=== PATIENT | female | born 1950 | race Caucasian/White ===

== ENCOUNTER → 2020-01-22 15:47 | Outpatient (BNVA) | payer MEDICARE, SELFPAY | PROVIDERS: Family Provider Nurse Practitioner Family; Visit Provider Nurse Practitioner Family | DX: J02.9 Acute pharyngitis, unspecified (principal) | CPT/HCPCS: 87071; 87880 ==

== ENCOUNTER 2024-09-03 14:59 | Emergency (ER) | payer MEDICARE, SELFPAY ==
--- NOTE | 2024-09-03 15:00 | CTR_ITS ---
PROCEDURE INFORMATION: Exam: CT Cervical Spine Without Contrast Exam date and time: 09/03/2024 4:24 PM Age: 73 years old Clinical indication: Injury or trauma; Fall; Bleeding/hemorrhage and blunt trauma TECHNIQUE: Imaging protocol: Computed tomography of the cervical spine without contrast. Radiation optimization: All CT scans at this facility use at least one of these dose optimization techniques: automated exposure control; mA and/or kV adjustment per patient size (includes targeted exams where dose is matched to clinical indication); or iterative reconstruction. COMPARISON: CT head wo con* [id number] 09/03/2024 4:24 PM RADIATION DOSE METRICS: Total DLP (mGy-cm): 191.9 FINDINGS: Bones: Alignment is normal. There is diffuse facet arthropathy. Degenerative disc disease is noted C4-C5, C5-C6, C6-C7. No fracture. Lungs: Lung apices are normal. Soft tissues: Unremarkable. CT/CT cervical spin wo con* [id number] IMPRESSION: No acute findings.
--- NOTE | 2024-09-03 15:00 | CTR_ITS ---
PROCEDURE INFORMATION: Exam: CT Head Without Contrast Exam date and time: 09/03/2024 4:24 PM Age: 73 years old Clinical indication: Injury or trauma; Fall; Bleeding/hemorrhage and blunt trauma (contusions or hematomas); Without loss of consciousness TECHNIQUE: Imaging protocol: Computed tomography of the head without contrast. Radiation optimization: All CT scans at this facility use at least one of these dose optimization techniques: automated exposure control; mA and/or kV adjustment per patient size (includes targeted exams where dose is matched to clinical indication); or iterative reconstruction. COMPARISON: CT cervical spin wo con* [id number] 09/03/2024 4:24 PM RADIATION DOSE METRICS: Total DLP (mGy-cm): 1051.2 FINDINGS: Brain: No midline shift. Ventricles, cisterns, and sulci are normal. No mass, acute infarct, hemorrhage, or extraaxial fluid collection. Cerebral ventricles: No ventriculomegaly. Paranasal sinuses: Visualized sinuses are unremarkable. No fluid levels. Mastoid air cells: Visualized mastoid air cells are well aerated. Bones: Unremarkable. No acute fracture. Soft tissues: Left frontal and periorbital scalp hematoma. CT/CT head wo con* [id number] IMPRESSION: No acute intracranial abnormality.
[2024-09-03 15:03] VITALS: BP 154/78; PULSE 109; RESP 16; TEMP 36.9; O2SAT 96
[2024-09-03 15:22] LABS: Basophils # 0.1 10^3/uL (0.0-0.1); Basophils % 0.8 %; Eosinophils # 0.3 10^3/uL (0.0-0.8); Eosinophils % 3.9 %; Hematocrit 42.3 % (36-47); Lymphocytes % 30.6 %; Mean Corpuscular HGB Conc 32.6 g/dL (30-55); Mean Corpuscular Hemoglobin 29.6 pg (27-33); Mean Corpuscular Volume 90.8 fl (85-98); Mean Platelet Volume 9.8 fL (7.4-10.4); Monocytes # 0.4 10^3/uL (0.2-0.9); Monocytes % 5.7 %; Neutrophils % 58.7 %; Nucleated Red Blood Cells % 0 %; Platelet Count 286 10^3/cmm (157-399); Red Blood Count 4.66 10^6/uL (3.85-5.65); Red Cell Distribution Width 12.8 % (12.1-15.1); White Blood Count 6.64 10^3/uL (3.29-11.43)
--- NOTE | 2024-09-03 15:22 | ED_ITS ---
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 She fell and hit her head she has a laceration above her left eye. No loss of consciousness she denies any other injury when she fell. States it occurred when she was trying to lift a heavy trash bag out of a barrel. She normally uses a cane. No nausea or vomiting. Associated symptoms-after fall: Reports headache(s); Denies abdominal pain, chest pain or neck pain Related Data Home Medications ?Medication ?Instructions ?Recorded ?Confirmed diazepam 2 mg tablet (Valium) 2 mg PO BID PRN Anxiety 01/22/20 09/03/24 triamterene 37.5 1 tab PO DAILY 09/03/2408/19 mg-hydrochlorothiazide 25 mg tablet Allergies Allergy/AdvReac Type Severity Reaction Status Date / Time No Known Allergies Allergy Unverified 01/22/20 15:40 Review of Systems 2 Const: Denies: fever(s) or chills Card: Denies: chest pain Resp: Denies: dyspnea GI: Denies: abdominal pain : Denies: dysuria, urinary frequency or urinary urgency Musc: Denies: neck pain or back pain Skin/Breast: Denies: rash Neuro: Reports: headache(s) PFSH ED 2 PFSH: Social History Smoking and tobacco/nicotine status: never used tobacco/nicotine Alcohol intake: never Substance/Drug Use: never Physical Exam 2 Const: COMMON NORMALS: no acute distress GENERAL APPEARANCE: cooperative ORIENTATION/CONSCIOUSNESS: Yes awake, Yes oriented to person, Yes oriented to place and Yes oriented to time HENMT: COMMON NORMALS: normocephalic, external ears normal, EAC's normal, TM's normal bilaterally and Normal nasal mucous membranes and turbinates present H EAD & SCALP: normocephalic NOSE: Normal nasal mucous membranes and turbinates present EXTERNAL EAR: Yes external ears normal EXTERNAL AUDITORY CANAL: E AC's normal TYMPANIC MEMBRANE: TM's normal bilaterally Eye: COMMON NORMALS: Equal, round and reactive pupils present, EOMs intact bilaterally, conjunctivae normal and no scleral icterus CONJUNCTIVA: Yes conjunctivae normal PUPIL: Yes Equal, round and reactive pupils present O THER: Laceration along the supraorbital ridge above the left eye 4 cm in length Neck/C-Spine: COMMON NORMALS: full ROM, no lymphadenopathy, supple and no JVD Resp: COMMON NORMALS: normal respiratory effort, No retractions, No use of accessory muscles and clear to auscultation bilaterally AUSCULTATION: clear to auscultation bilaterally Cardio: COMMON NORMALS: no JVD, regular rate, regular rhythm and No murmurs present (Cardio) RATE: regular rate RHYTHM: regular rhythm GI: COMMON NORMALS: Soft to palpation and No hepatosplenomegaly present A USCULTATION: Yes normoactive bowel sounds PALPATION: Yes Soft to palpation, No Tenderness to palpation present (GI), No Guarding due to palpation present (GI) and Yes No hepatosplenomegaly present Extremity: COMMON NORMALS: normal to inspection, capillary refill normal, no clubbing, cyanosis or edema, no calf tenderness and no pedal edema Neuro: SENSORIUM/ORIENTATION: Yes oriented to person, Yes oriented to place and Yes oriented to time Skin: COMMON NORMALS: no rashes or lesions noted GENERAL SKIN EXAM: no rashes or lesions noted Procedures Laceration Laceration 1: Site: face Side (If applicable): left Size (cm): 4 Description: linear Depth: simple, single layer Local Anesthetic: lidocaine 1% and with epi Amount of anesthesia used (mL): 2 Pre-repair: irrigated extensively Skin layer closed with: nylon Size (cm): 6-0 Number of sutures: 1 Technique: running Course 2 Vital Signs: Vital signs: Vital Signs Temperature 98.4 F 09/03/24 15:03 Pulse Rate 106 H 09/03/24 18:30 Respiratory Rate 16 09/03/24 16:56 Blood Pressure 107/80 09/03/24 18:30 Pulse Oximetry 96 09/03/24 18:30 Oxygen Delivery Me thod Room Air 09/03/24 16:56 MDM - Fall Medical Decision Making CT head neck negative x-ray of the hand is also negative. Wound closed as described above on procedure note. Wound care instructions given follow-up with primary care 1 week to remove the sutures. Advised patient likely to have extensive swelling and bruising. Medical Records I reviewed the patient's medical records. Lab Data I reviewed the patient's lab results. 09/03/24 15:14 09/03/24 15:14 Radiology Impressions Cervical Spine CT 09/03/24 15:00 IMPRESSION: No acute findings. Head CT 09/03/24 15:00 IMPRESSION: No acute intracranial abnormality. Hand X-Ray 09/03/24 16:37 IMPRESSION: No acute bony abnormality. Laboratory Results WBC 6.64 10^3/uL (3.29-11.43) 09/03/24 15:14 RBC 4.66 10^6/uL (3.85-5.65) 09/03/24 15:14 Hgb 13.80 g/dL (11.27-16.99) 09/03/24 15:14 Hct 42.3 % (36-47) 09/03/24 15:14 MCV 90.8 fl (85-98) 09/03/24 15:14 MCH 29.6 pg (27-33) 09/03/24 15:14 MCHC 32.6 g/dL (30-55) 09/03/24 15:14 RDW 12.8 % (12.1-15.1) 09/03/24 15:14 Plt Count 286 10^3/cmm (157-399) 09/03/24 15:14 MPV 9.8 fL (7.4-10.4) 09/03/24 15:14 Neut % (Auto) 58.7 % 09/03/24 15:14 Lymph % (Auto) 30.6 % 09/03/24 15:14 [place] % (Auto) 5.7 % 09/03/24 15:14 Eos % (Auto) 3.9 % 09/03/24 15:14 Baso % (Auto) 0.8 % 09/03/24 15:14 Neut # (Auto) 3.90 10^3/uL (1.8-7.7) 09/03/24 15:14 Lymph # (Auto) 2.0 10^3/uL (0.8-4.8) 09/03/24 15:14 [place] # (Auto) 0.4 10^3/uL (0.2-0.9) 09/03/24 15:14 Eos # (Auto) 0.3 10^3/uL (0.0-0.8) 09/03/24 15:14 Baso # (Auto) 0.1 10^3/uL (0.0-0.1) 09/03/24 15:14 Nucleated RBC % (auto) 0 % 09/03/24 15:14 Nucleated RBCs # 0.0 /100WBC 09/03/24 15:14 Sodium 137 mmol/L (136-145) 09/03/24 15:14 Potassium 3.4 mmol/L (3.5-5.1) L 09/03/24 15:14 Chloride 97 mmol/L (98-107) L 09/03/24 15:14 Carbon Dioxide 24 mmol/L (22-29) 09/03/24 15:14 Anion Gap 19.4 (5-19) H 09/03/24 15:14 BUN 11 mg/dL (8-23) 09/03/24 15:14 Creatinine 0.7 mg/dL (0.5-0.9) 09/03/24 15:14 GFR Calculation Not Reportable 09/03/24 15:14 Glucose 110 mg/dL (65-115) 09/03/24 15:14 Calculated Osmolality 284 mOsm/kg (285-295) L 09/03/24 15:14 Calcium 9.5 mg/dL (8.5-10.5) 09/03/24 15:14 Total Bilirubin 0.4 mg/dL (0.15-1.2) 09/03/24 15:14 AST 13 U/L (0-32) 09/03/24 15:14 ALT 10 U/L (0-33) 09/03/24 15:14 Alkaline Phosphatase 141 U/L (35-105) H 09/03/24 15:14 Total Protein 6.8 g/dL (6.6-8.7) 09/03/24 15:14 Albumin 4.2 g/dL (3.5-5.2) 09/03/24 15:14 Globulin 2.6 g/dL (1.3-4.6) 09/03/24 15:14 All radiology interpretation(s) finalized by discharge Discharge Plan Discharge Patient Disposition: Home Clinical Impression: Facial laceration, Hematoma of face, Fall Condition: Stable Prescriptions: No Action diazepam [Valium] 2 mg tablet 2 mg PO BID PRN (Reason: Anxiety) triamterene-hydrochlorothiazid 37.5-25 mg tablet 1 tab PO DAILY Discharge Orders: Discharge ED (Routine); Ordered 09/03/24 Ordered By: Rhona Mcgraw Discharge Diet: Usual diet Discharge Activity: Increase activity as tolerated Patient Instructions: Opioid Safety, Pain Management Activity Restrictions/Additional Instructions: Thank you for choosing [facility] for your healthcare needs today. It is very important that you follow up as instructed or that you return to the Emergency Department should you have concerns or if your condition changes or worsens in any way. You were seen in emergency room after a fall CT of your head and neck and x-ray of your right hand were all negative for any acute fractures. He did have a pretty significant hematoma on the scalp this will cause us noticeable amount of swelling on the eye it is likely that your eye will be swollen shut tomorrow and may last for several days. You can apply cold compresses to the hematoma to try to decrease the swelling. Laceration above the left eye was stitched the stitches should be removed in 5 to 7 days. Apply topical antibiotic ointment [id number] to the wound twice a day. You can bathe normally recommend smearing moderate amount of Vaseline over the wound prior to bathing and then gently wiping off once you have completed. Do not soak the area. Print Language: [place] Coding Level of Care Code ED Controls Operator [employer] for Isadora Mitchell
[2024-09-03 15:35] LABS: Alanine Aminotransferase 10 U/L (0-33); Albumin Level 4.2 g/dL (3.5-5.2); Alkaline Phosphatase 141 U/L (35-105); Anion Gap 19.4 (5-19); Aspartate Amino Transferase 13 U/L (0-32); Blood Urea Nitrogen 11 mg/dL (8-23); Calcium 9.5 mg/dL (8.5-10.5); Carbon Dioxide 24 mmol/L (22-29); Chloride 97 mmol/L (98-107); Globulin 2.6 g/dL (1.3-4.6); Glucose 110 mg/dL (65-115); Osmolality Calculated 284 mOsm/kg (285-295); Potassium 3.4 mmol/L (3.5-5.1); Sodium 137 mmol/L (136-145); Total Bilirubin 0.4 mg/dL (0.15-1.2); Total Protein 6.8 g/dL (6.6-8.7)
[2024-09-03] MEDS: tetanus-dipt-pertussis 0.5 mL SDV IM (15:47)
[2024-09-03 15:56] VITALS: BP 150/77; PULSE 114; RESP 16; O2SAT 99
[2024-09-03] MEDS: lidocaine-epi 1% 20 mL INJ INJECTION (15:56)
--- NOTE | 2024-09-03 16:37 | XRR_ITS ---
PROCEDURE INFORMATION: Exam: XR Right Hand Exam date and time: 09/03/2024 4:46 PM Age: 73 years old Clinical indication: Pain; Hand; Right; 4th digit; Additional info: Trauma TECHNIQUE: Imaging protocol: Radiologic exam of the right hand. Views: 3 or more views. COMPARISON: No relevant prior studies available. FINDINGS: Bones/joints: Osteopenia. Diffuse degenerative changes involving the small joints of the fingers and the 1st carpometacarpal articulation. No fracture. Soft tissues: Normal. XR/XR hand RT min 3V* [id number] IMPRESSION: No acute bony abnormality.
[2024-09-03 16:56] VITALS: BP 127/64; PULSE 111; RESP 16; O2SAT 96
[2024-09-03 18:30] VITALS: BP 107/80; PULSE 106; O2SAT 96
== END 2024-09-03 18:39 | disposition home or self-care (01) ==
PROVIDERS: Emergency Provider Family Medicine
DX: S01.81XA Laceration without foreign body of other part of head, initial encounter (principal); W19.XXXA Unspecified fall, initial encounter; Z23 Encounter for immunization
CPT/HCPCS: 12013; 70450; 72125; 73130; 80053; 85025; 90715; 99284; J9999